=== PATIENT | female | born 2005 | race Two or more races ===

== ENCOUNTER 2024-10-07 20:22 | Emergency (ER) | payer MEDICAID, SELFPAY ==
[2024-10-07 20:36] VITALS: BP 115/80; PULSE 110; RESP 19; TEMP 37.2; O2SAT 98; BMI 26.7
--- NOTE | 2024-10-07 20:43 | XR_ITS ---
Examination: Abdomen sonogram, Limited Date and time of exam: October 07, 2024 2110 hrs. Indications: Onset right upper abdominal pain today Technique: Real-time neil scale transabdominal sonographic images of the upper abdomen obtained. Findings: Gallbladder sludge Negative for gallstones Gallbladder wall 0.3 cm no edema Common bile duct 0.2 cm Pancreatic head 2.1 cm Liver 13.6 cm fatty infiltration irregular contour no focal liver lesions Normal hepatopedal portal venous flow Patent IVC Impression: Gallbladder sludge, negative for cholelithiasis, negative for cholecystitis Liver normal size, fatty liver, suspect primary hepatocellular disease
--- NOTE | 2024-10-07 20:44 | PD.EDRME ---
Rapid Medical Screening Exam E Arrival date/time: 10/07/24 20:22 18-year-old female approximately 11 weeks presents emergency department complaining of epigastric pain, nausea vomiting, diarrhea, and generalized bodyaches since this morning. Patient denies any vaginal bleeding or abdominal cramping. Chief Complaint: Nausea/Vomiting/Diarrhea Vital signs: Vital Signs Temperature 99 F 10/07/24 20:36 Pulse Rate 110 H 10/07/24 20:36 Respiratory Rate 19 10/07/24 20:36 Blood Pressure 115/80 10/07/24 20:36 Pulse Oximetry (%) 98 10/07/24 20:36 Oxygen Delivery Method Room Air 10/07/24 20:36 Vital signs reviewed by provider: Yes
[2024-10-07 21:11] LABS: Basophils % (Auto) 0 % (0-2.5); Eosinophils % (Auto) 0 % (0-10); Immature Granulocytes % (Auto) 0 % (0-0); Immature Granulocytes Auto 0.03 Thou/mm3 (0.00-0.00); Lymphocytes # (Auto) 0.9 Thou/mm3 (1.0-5.0); Lymphocytes % (Auto) 9 % (10-50); Mean Corpuscular HGB Conc 35.1 g/dl (31.0-37.0); Mean Corpuscular Hemoglobin 28.8 pg (25.0-35.0); Mean Corpuscular Volume 82 fL (80-100); Monocytes # (Auto) 0.3 Thou/mm3 (0.0-0.8); Monocytes % (Auto) 3 % (0-12); Neutrophils # (Auto) 8.4 Thou/mm3 (1.8-7.7); Neutrophils % (Auto) 87 % (37-80); Nucleated Red Blood Cell % 0 /100 WBC (0); Platelet Count 275 Thou/mm3 (140-440); RDW Standard Deviation 38.4 fL (36.4-46.3); Red Blood Count 4.51 Miln/mm3 (4.00-5.20); White Blood Count 9.6 Thou/mm3 (4.5-11.0)
[2024-10-07 22:10] LABS: Alanine Aminotransferase 17 U/L (10-49); Albumin, Serum 4.3 gm/dL (3.5-5.0); Albumin/Globulin Ratio 1.5 (1.2-2.2); Alkaline Phosphatase 55 U/L (46-116); Anion Gap 9 (7-16); Aspartate Amino Transferase 15 U/L (0-34); BUN/Creatinine Ratio 8 Ratio (12-20); Bilirubin,Total 0.9 mg/dL (0.3-1.2); Blood Urea Nitrogen < 5 mg/dL (9-23); Calcium 9.8 mg/dL (8.3-10.6); Calcium (Corrected) 9.8 mg/dL (8.5-10.1); Carbon Dioxide 21.1 mMol/L (20.0-31.0); Chloride 105 mMol/L (98-107); Creatinine (Component) 0.6 mg/dL (0.6-1.3); Estimated Creatinine Clearance 145.5 mL/min (>60); Globulin 2.8 gm/dL (2.3-3.5); Glucose 111 mg/dL (74-106); Lipase 35 U/L (12-53); Osmolality,Calculated 268 (275-295); Potassium 3.2 mMol/L (3.4-5.1); Sodium 135 mMol/L (136-145); Total Protein 7.1 gm/dL (5.7-8.2); eGFR > 60 See Note
[2024-10-07 23:21] LABS: Collection Type, Urine Clean Catch
[2024-10-07 23:35] LABS: Bacteria,Urine 1+; Bilirubin,Urine Negative (Negative); Blood,Urine Negative (Negative); Clarity,Urine Turbid (Clear/Hazy); Color,Urine Yellow (Lt Yel-Yel); Culture Indicated,Urine Contaminated; Glucose, Urine Negative (Negative); Ketones,Urine 1+ (Negative); Leukocyte Esterase,Urine Negative (Negative); Nitrite,Urine Negative (Negative); PH,Urine 6.5 (5.0-7.0); Protein,Urine 1+ (Neg - Trace); RBC,Urine 3 /hpf (0-3); Specific Gravity,Urine 1.032 (1.001-1.035); Squamous Epithelial Cell,Urine 11 /hpf (0-5); WBC,Urine 4 /hpf (0-5)
[2024-10-08 00:23] VITALS: BP 114/69; PULSE 92; RESP 18; TEMP 37.2; O2SAT 99
--- NOTE | 2024-10-08 01:15 | PD.EDNV ---
Nausea/Vomit./Diarrhea-RME/HPI General Chief complaint: Nausea/Vomiting/Diarrhea Stated complaint: DARK VOMIT, DIARRHEA Arrival date/time: 10/07/24 20:22 RME / HPI RME / HPI Narrative: 10/07/24 20:22 18-year-old female approximately 11 weeks presents emergency department complaining of epigastric pain, nausea vomiting, diarrhea, and generalized bodyaches since this morning. Patient denies any vaginal bleeding or abdominal cramping. ------ Dr. Rucker?s Main ED Evaluation: 18yo female who is ~11 weeks gestation presents to the ED for complaints of N/V/D x 1 day. 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 She endorses having 4-5 associated episodes of diarrhea. She endorses her whole household is sick with similar symptoms. She denies any fever, chills or any other associated symptoms. No known allergies. Related Data Previous Rx's ?Medication ?Instructions ?Recorded ondansetron 4 mg disintegrating 4 mg PO Q8H PRN nausea and 09/06/24 tablet vomiting #14 tabs polyethylene glycol 3350 17 4 g PO BID PRN constipation 7 days 09/06/24 gram/dose oral powder (Miralax) #56 grams metoclopramide HCl 5 mg tablet 5 mg PO QDAY #30 tabs 09/16/24 (Reglan) ondansetron 4 mg disintegrating 4 mg PO Q8H PRN nausea and 10/08/24 tablet vomiting #10 tabs Allergies Allergy/AdvReac Type Severity Reaction Status Date / Time No Known Allergies Allergy Verified 09/16/24 09:02 Review of Systems Review of Systems Systems Reviewed: All systems reviewed, normal except as documented Narrative Review of Systems: Gen: No fever, no chills, no weight loss EYES: No discharge, no visual changes, no pain HEENT: No ear pain, no congestion, no sore throat PULM: No shortness of breath, no cough, no congestion CV: No chest pain, no dyspnea on exertion, no palpitations GI: + nausea, + vomiting, + diarrhea, no pain, no constipation : No frequency, no urgency, no dysuria Musc/skel: No joint pain, no back pain Skin: No rash Psyc: No hallucinations, no depression Heme/Lymph: No easy bleeding or bruising tendencies Neuro: No weakness, no headache Past Medical History Past Medical History NEUROLOGIC: Negative Neurological Disorders CARDIAC: Negative Cardiac Disorders or Congestive Heart Failure RESPIRATORY: Negative Chronic Obstructive Pulmonary Disease (COPD) GASTROINTESTINAL: Negative Gastrointestinal Disorders GENITOURINARY: Negative Genitourinary Disorders or Renal Disease MUSCULOSKELETAL: Negative Musculoskeletal Disorders ENDOCRINE: Negative Endocrine Disorders, Diabetes Mellitus Type 1 or Diabetes Mellitus Type 2 HEMATOLOGIC: Negative Blood Disorders Social History SMOKING STATUS: Never smoker ED Exam Narrative Physical exam: GENERAL APPEARANCE: AxOx4, generally well-appearing, no acute distress. HEENT: NC, AT. MMM. EOMI, clear conjunctiva, oropharynx clear. NECK: Supple without lymphadenopathy. No stiffness or restricted ROM. HEART: Normal rate and regular rhythm, normal S1/S1, no m/r/g LUNGS: CTAB, moving air well. No crackles or wheezes are heard. ABDOMEN: Soft, nontender, nondistended with good bowel sounds heard. BACK: No midline C/T/L spine pain or deformity, No CVAT, no obvious deformity. EXTREMITIES: Without cyanosis, clubbing or edema. MUSCULOSKELETAL: FROM of all major joints, no chest tenderness NEUROLOGICAL: Grossly nonfocal. Alert and oriented, moving all 4 extremities. CN not formally tested but appear grossly intact. Observed to ambulate with normal gait. Skin: Warm and dry without any rash. Course Quality Measures none Orders Category Date Time Status Bedside COVID-19 Antigen Test NOW Care 10/07/24 21:02 Active Bedside Influenza A&B Antigen Test NOW Care 10/07/24 21:02 Completed US gall bladder Stat Exams 10/07/24 20:43 Completed CBC Stat Lab 10/07/24 20:48 Completed CMP [Comprehensive Metabolic Panel] Stat Lab 10/07/24 20:48 Completed Lipase Stat Lab 10/07/24 20:48 Completed Urinalysis, C/S if Indicated Stat Lab 10/07/24 22:16 Completed Vital Signs Vital signs: Vital Signs Temperature 99 F 10/07/24 20:36 Pulse Rate 110 H 10/07/24 20:36 Respiratory Rate 19 10/07/24 20:36 Blood Pressure 115/80 10/07/24 20:36 Pulse Oximetry (%) 98 10/07/24 20:36 Oxygen Delivery Method Room Air 10/07/24 20:36 Pulse ox is 98% on room air, which is normal according to my interpretation. Nausea/Vomiting/Diarrhea MDM Narrative MDM Narrative:: Scribe Attestation: I, Kierra Lopez, am scribing for and in the presence of Dr. Rucker. Patient data External records reviewed:: [facility] previous records (Per chart review, patient was seen here for the same complaint on 09/16/24.) Clinical information provided by:: patient Social determinants that could affect healthcare access:: none Patient has the following chronic illnesses:: none How is presenting disease/condition affected by chronic disease/condition?: no chronic disease Evaluation data The following diagnostics were reviewed and interpreted by me:: lab results and radiology exam(s) Lab and/or radiology exams considered but not ordered:: none Interpretation Summary: Lipase is normal, urinalysis is contaminated, CBC is normal, according to my interpretation. ----- [facility] Report Signed Patient: VIKAS JACKSON Record#: [id number] Birthdate: 2005 Age/Sex: 18 / F Location: [facility] Attending Dr: Ordering Physician: Beth Fam (PLUG OVERWRAP MACHINE TENDER)Raffaele Date of Service: 10/07/24 Procedure(s): US gall bladder Accession Number(s): [id number] cc: Josh Lopez MD; Chung Giles MD; Beth Fam (PLUG OVERWRAP MACHINE TENDER),Raffaele MATT~ Examination: Abdomen sonogram, Limited Date and time of exam: October 07, 2024 2110 hrs. Indications: Onset right upper abdominal pain today Technique: Real-time neil scale transabdominal sonographic images of the upper abdomen obtained. Findings: Gallbladder sludge Negative for gallstones Gallbladder wall 0.3 cm no edema Common bile duct 0.2 cm Pancreatic head 2.1 cm Liver 13.6 cm fatty infiltration irregular contour no focal liver lesions Normal hepatopedal portal venous flow Patent IVC Impression: Gallbladder sludge, negative for cholelithiasis, negative for cholecystitis Liver normal size, fatty liver, suspect primary hepatocellular disease Dictated By: Chung Giles MD Signed By: <Electronically signed by Chung Giles MD in OV> 10/07/24 2143 Medications / Prescriptions Medications / Prescriptions considered but not ordered:: none Medication administrations:: see above, if any Consultations Consultation(s) initiated? (list below): No Diagnosis Nausea Differential Diagnosis: food poisoning, gastroenteritis and other (colitis, IBS) Most likely diagnosis given after review of the tests above:: see below Admission Indicated Admission indicated?: not indicated Admission Request Was there a request for admission?: No Disposition Plan Disposition Plan: Discharge Discharge Attestation Discharge Attestation: The patient and all family members were given an opportunity to ask questions and understood the discharge instructions. Discharge instructions specifically effects, indications for sooner follow up or return to the emergency department, and the expected course of current diagnosis. Patient condition: Stable Discharge Plan Plan Patient Disposition: HOME (Self Care) Prescriptions/Referrals Prescriptions/Med Rec: New ondansetron 4 mg tablet,disintegrating 4 mg PO Q8H PRN (Reason: nausea and vomiting) Qty: 10 0RF No Action polyethylene glycol 3350 [Miralax] 17 gram/dose powder 4 g PO BID PRN (Reason: constipation) 7 Days Qty: 56 1RF Rx Instructions: Place in 6 to 8 ounces of any type of fluid. ondansetron 4 mg tablet,disintegrating 4 mg PO Q8H PRN (Reason: nausea and vomiting) Qty: 14 0RF metoclopramide HCl [Reglan] 5 mg tablet 5 mg PO QDAY Qty: 30 0RF Referrals: Josh Lopez MD [Primary Care Provider] - In 1 week Problem List Clinical Impression: Gastroenteritis Patient/Caregiver Discharge Instructions Education Materials: ED Gastroenteritis, Viral (Adult) Additional Instructions: Drink plenty of fluids. Follow-up with your primary care doctor in 5 to 7 days if symptoms are not improving. You can return to the emergency department sooner if symptoms worsen or if you notice any new, concerning issues. Print Language: Libyan Stand Alone Forms: [facility] Award Info., Patient Portal Info Letter
== END 2024-10-08 01:24 | disposition home or self-care (01) ==
PROVIDERS: Emergency Provider Emergency Medicine; PCP Family Medicine
DX: O99.611 Diseases of the digestive system complicating pregnancy, first trimester (principal); K52.9 Noninfective gastroenteritis and colitis, unspecified; O26.611 Liver and biliary tract disorders in pregnancy, first trimester; K76.0 Fatty (change of) liver, not elsewhere classified; Z3A.11 11 weeks gestation of pregnancy
CPT/HCPCS: 36415; 76705; 80053; 81001; 83690; 85025; 87400; 87811; 99284

== ENCOUNTER 2024-11-15 00:21 | Emergency (ER) | payer MEDICAID, SELFPAY ==
[2024-11-15 00:22] VITALS: BMI 27.1
[2024-11-15 00:38] VITALS: BP 109/74; PULSE 100; RESP 18; TEMP 36.9; O2SAT 98
--- NOTE | 2024-11-15 00:49 | PD.EDURI ---
Upper Respiratory Inf. RME/HPI General Chief Complaint: Flu Like Symptoms Stated Complaint: COUGH Time Seen by Provider: 11/15/24 00:41 Arrival date/time: 11/15/24 00:21 18F with no significant PMH presents to ED with 5 days of worsening cough. Patient is also 16 weeks . Limitations: no limitations Related Data Previous Rx's ?Medication ?Instructions ?Recorded ondansetron 4 mg disintegrating 4 mg PO Q8H PRN nausea and 09/06/24 tablet vomiting #14 tabs polyethylene glycol 3350 17 4 g PO BID PRN constipation 7 days 09/06/24 gram/dose oral powder (Miralax) #56 grams metoclopramide HCl 5 mg tablet 5 mg PO QDAY #30 tabs 09/16/24 (Reglan) ondansetron 4 mg disintegrating 4 mg PO Q8H PRN nausea and 10/08/24 tablet vomiting #10 tabs azithromycin 250 mg tablet See Rx Instructions PO .COMPLEX #6 11/15/24 tabs Allergies Allergy/AdvReac Type Severity Reaction Status Date / Time No Known Allergies Allergy Verified 09/16/24 09:02 Review of Systems Review of Systems Systems Reviewed: All systems reviewed, normal except as documented Constitutional Constitutional: Reports system reviewed and no additional complaints, except as documented, Denies fever(s) and Denies headache(s) ENT Ears, Nose, Mouth, and Throat: Denies disequilibrium and Denies headache(s) Cardiovascular Cardiovascular: Reports system reviewed and no additional complaints, except as documented, Denies chest pain and Denies dyspnea Respiratory Respiratory: Reports system reviewed and no additional complaints, except as documented, Reports as per HPI, Reports cough and Denies dyspnea Gastrointestinal Gastrointestinal: Reports system reviewed and no additional complaints, except as documented, Denies abdominal pain, Denies nausea and Denies vomiting Neurologic Neurologic: Reports system reviewed and no additional complaints, except as documented, Denies confusion, Denies disequilibrium and Denies headache(s) Psychiatric Psychiatric: Denies confusion Past Medical History Past Medical History NEUROLOGIC: Negative Neurological Disorders CARDIAC: Negative Cardiac Disorders or Congestive Heart Failure RESPIRATORY: Negative Chronic Obstructive Pulmonary Disease (COPD) GASTROINTESTINAL: Negative Gastrointestinal Disorders GENITOURINARY: Negative Genitourinary Disorders or Renal Disease MUSCULOSKELETAL: Negative Musculoskeletal Disorders ENDOCRINE: Negative Endocrine Disorders, Diabetes Mellitus Type 1 or Diabetes Mellitus Type 2 HEMATOLOGIC: Negative Blood Disorders Social History SMOKING STATUS: Former smoker ED Exam General Limitations: Present no limitations General appearance: Present alert and in no apparent distress Head Head exam: Present atraumatic Eye Eye exam: Present normal appearance, PERRL and EOMI ENT ENT exam: Present mucous membranes moist Expanded ENT Exam Throat exam: Present tonsillar erythema; Absent tonsillomegaly, tonsillar exudate, R peritonsillar mass, L peritonsillar mass or muffled voice Neck Neck exam: Present normal inspection, full ROM and trachea midline Chest Chest inspection: Present normal inspection and symmetric chest wall rise Respiratory Respiratory exam: Present normal lung sounds bilaterally Cardiovascular Cardiovascular exam: Present regular rate, normal rhythm and normal heart sounds Abdominal Exam Abdominal exam: Present soft and normal bowel sounds Extremities Exam Extremities exam: Present normal inspection and full ROM Back Exam Back exam: Present normal inspection and full ROM Neurological Exam Neurological exam: Present alert, oriented X3 and CN II-XII intact Psychiatric Psychiatric exam: Present normal affect and normal mood Skin Skin exam: Present warm, dry, intact and normal color Course Quality Measures none Orders Category Date Time Status Bedside Influenza A&B Antigen Test NOW Care 11/15/24 00:41 Completed Strep A Rapid Stat Lab 11/15/24 00:54 Completed Vital Signs Vital signs: Vital Signs Temperature 98.4 F 11/15/24 00:38 Pulse Rate 100 11/15/24 00:38 Respiratory Rate 18 11/15/24 00:38 Blood Pressure 109/74 11/15/24 00:38 Pulse Oximetry (%) 98 11/15/24 00:38 Oxygen Delivery Method Room Air 11/15/24 00:38 O2 at 98% on RA and WNLs Upper Respiratory Infection MDM Narrative MDM Narrative:: 18F with no significant PMH presents to ED with 5 days of worsening cough. Patient is also 16 weeks . Physical exam reveals red oropharynx but otherwise clear ENT and lungs. Patient is afebrile, clm, and alert. Swabs neg. Will treat given duration and status. Patient data External records reviewed:: [facility] previous records Clinical information provided by:: patient Social determinants that could affect healthcare access:: none Patient has the following chronic illnesses:: none How is presenting disease/condition affected by chronic disease/condition?: no chronic disease Evaluation data The following diagnostics were reviewed and interpreted by me:: lab results Lab and/or radiology exams considered but not ordered:: ordered Interpretation Summary: above Medications / Prescriptions Medications or Prescriptions considered but not ordered:: not ordered Medication administrations:: n/a Consultations Consultation(s) initiated? (list below): No Diagnosis Upper Respiratory Differential Diagnosis: upper respiratory infection, croup, otitis media, sinusitis, viral infection, bronchitis, influenza, pharyngitis and other (CAP) Most likely diagnosis given after review of the tests above:: URI Admission Indicated Admission indicated?: not indicated Admission Request Was there a request for admission?: No Disposition Plan Disposition Plan: Discharge Discharge Attestation Discharge Attestation: The patient and all family members were given an opportunity to ask questions and understood the discharge instructions. Discharge instructions specifically effects, indications for sooner follow up or return to the emergency department, and the expected course of current diagnosis. Patient condition: Stable Discharge Plan Plan Patient Disposition: HOME (Self Care) Disposition Comment: Stable Prescriptions/Referrals Prescriptions/Med Rec: New azithromycin 250 mg tablet See Rx Instructions .ROUTE .COMPLEX Qty: 6 0RF Rx Instructions: For 250 mg dose pack: take 500 mg today (day 1), then 250 mg for 4 days (days 2-5) No Action polyethylene glycol 3350 [Miralax] 17 gram/dose powder 4 g PO BID PRN (Reason: constipation) 7 Days Qty: 56 1RF Rx Instructions: Place in 6 to 8 ounces of any type of fluid. ondansetron 4 mg tablet,disintegrating 4 mg PO Q8H PRN (Reason: nausea and vomiting) Qty: 14 0RF metoclopramide HCl [Reglan] 5 mg tablet 5 mg PO QDAY Qty: 30 0RF ondansetron 4 mg tablet,disintegrating 4 mg PO Q8H PRN (Reason: nausea and vomiting) Qty: 10 0RF Referrals: No Primary/Family,Physician [Primary Care Provider] - In 1 week Problem List Clinical Impression: Upper respiratory infection Patient/Caregiver Discharge Instructions Additional Instructions: Please follow-up with PCP within 24-48 hours and return immediately if symptoms worsen. Tylenol can be used for fever/pain control. Benadryl is good for cough, congestion, and sleep. Print Language: Mauritanian Stand Alone Forms: Patient Portal Info Letter AISLINN/SHAKA Supervising Physician AISLINN/SHAKA Supervising Physician: Dr. Mane
[2024-11-15 01:36] LABS: Strep A Rapid Negative (Negative)
== END 2024-11-15 01:54 | disposition home or self-care (01) ==
PROVIDERS: Physician Assistant; Emergency Provider Emergency Medicine
DX: O99.512 Diseases of the respiratory system complicating pregnancy, second trimester (principal); J06.9 Acute upper respiratory infection, unspecified; Z3A.16 16 weeks gestation of pregnancy; Z87.891 Personal history of nicotine dependence
CPT/HCPCS: 87400; 87651; 99283

== ENCOUNTER 2025-04-13 01:36 | Inpatient (IN) | payer MEDICAID, SELFPAY ==
[2025-04-13] VITALS (34 sets, daily range): BP systolic 100–147; BP diastolic 55–82; PULSE 73–114; RESP 18–100; TEMP 36.7–37.4; O2SAT 91–100; BMI 35.7
[2025-04-13] MEDS: RINGERS LACTATED 1000 ML 1,000 ML 100 ML IV (03:15)
[2025-04-13 03:44] LABS: Basophils % (Auto) 0 % (0-2.5); Eosinophils % (Auto) 0 % (0-10); Hematocrit 35.3 % (36.0-46.0); Hemoglobin 12.4 g/dL (12.0-16.0); Immature Granulocytes % (Auto) 0 % (0-0); Immature Granulocytes Auto 0.06 Thou/mm3 (0.00-0.00); Lymphocytes # (Auto) 2.4 Thou/mm3 (1.0-4.8); Lymphocytes % (Auto) 16 % (10-50); Mean Corpuscular HGB Conc 35.1 g/dl (31.0-37.0); Mean Corpuscular Hemoglobin 28.8 pg (25.0-35.0); Mean Corpuscular Volume 82 fL (80-100); Monocytes # (Auto) 0.8 Thou/mm3 (0.0-0.8); Monocytes % (Auto) 5 % (0-12); Neutrophils # (Auto) 11.6 Thou/mm3 (1.8-7.7); Neutrophils % (Auto) 78 % (37-80); Nucleated Red Blood Cell % 0 /100 WBC (0); Platelet Count 258 Thou/mm3 (140-440); RDW Standard Deviation 41.4 fL (36.4-46.3); Red Blood Count 4.31 Miln/mm3 (4.00-5.20); White Blood Count 14.9 Thou/mm3 (4.5-11.0)
[2025-04-13] MEDS: OXYTOCIN in NS 20 units 20 UNIT/1,000 ML BAG 125 UNIT IV (04:10)
[2025-04-13 04:12] LABS: HIV (1&2) Antibody Rapid Non-Reactive
[2025-04-13 04:14] LABS: Rubella, IgG Antibody Reactive (Immune)
[2025-04-13 04:19] LABS: Hepatitis B Surface Antigen Non Reactive (Non React)
[2025-04-13 04:23] LABS: Syphilis Nonreactive (Nonreactive)
[2025-04-13] MEDS: METHYLERGONOVINE INJ 0.2 MG/ML VIAL IM (04:36)
[2025-04-13] MEDS: IBUPROFEN TAB 400 MG TABLET 800 MG PO ×2 (04:52→17:13)
--- NOTE | 2025-04-13 04:55 | OBDSUM_ITS ---
Data ([place]) Data Hx Section: No : 3 Term: 0 : 0 Livin Abortions: Spontaneous & Theraputic: 1 Delivery Data ([place]) Labor Data Initiation of labor: Spontaneous Induction/Augmentation Agent: None ROM date: 04/13/25 ROM time: 03:07 Amniotic membrane rupture type: Spontaneous Amniotic fluid description: Clear Delivery Data Onset of labor date: 04/12/25 Onset of labor time: 10:30 Complete dilation date: 04/13/25 Complete dilation time: 04:08 delivery date: 04/13/25 delivery time: 04:10 Placenta delivery date: 04/13/25 Placenta delivery time: 04:16 Stage 1 total time: Labor - Stage 1 Duration 17 hours and 38 minutes Delivered by: nicole Delivery nurse: evelyn mcgregor rn [place] nurse: dennis mathew rn Vice President Risk Management at delivery: No Support person(s) at delivery: fathor of the baby Other staff at delivery: Lay PITT RN, Khadar LIANG cat cracker operator Method Delivery method: Normal Vaginal Delivery Presentation: Vertex Anesthesia Type Anesthesia Type: None Placenta Placenta delivery description: Spontaneous Cord blood sent to lab: Yes cord blood collection: Cord Blood Type Episiotomy Episiotomy description: None EBL Estimated blood loss (ml): 150 Umbilical Cord cord description: 3 Vessels Additional Procedures Aby is a 19yo [id number] s/p uncomplicated at 37+wk after presenting in active labor/with SROM in triage, delivering at 0410 on 04/13/2025. On presentation, SCE was 3/80/-2. She progressed without pitocin augmentation to C/C/0 at which point she began pushing. She was not able to receive an epidural. Patient preferred to deliver in hands-knees position. With good maternal pushing efforts, infant's head delivered OA and restituted ANASTASIIA. Right anterior shoulder delivered easily followed by posterior shoulder and corpus. had spontaneous cry and was vigorous. Apgars 8/9. placed in supported sitting position on the blue drape where nose/mouth were suctioned and infant dried/stimulated. After approximately 30 seconds, cord was clamped x2 and cut by FOB. Infant then taken to warmer and patient repositioned to supine position. Cord blood collected for typing. With fundal massage and cord traction, placenta delivered spontaneously and intact with 3 vessel centrally inserted cord, trailing membranes teased out intact. Fundal massage performed and IV pitocin given per protocol with fundus then firm at u-2cm and hemostasis noted. Inspection of perineum and vagina revealed bilateral labial lacerations which were repaired in routine fashion with 4-0 vicryl after anesthetizing with 1% lidocaine- total reapproximation and hemostasis achieved. 0.2mg IM methergine given for prophylaxis against future bleeding. All counts correct x2. Mom and were doing well when I left the room. Janessa Bello MD Complications Complications: none Data ([place]) [place] Data 's gender: Male weight (gms): 3195 g Weight (pounds): 7 lbs and 0.7 ozs 1 minute: 8 5 minutes: 9
--- NOTE | 2025-04-13 04:55 | PD.LDHP ---
Documentation for date of: 04/13/25 OB Labor/Induct. HPI History of Present Illness : 3 Para: 0 Term pregnancies: 0 pregnancies: 0 Living children: 0 History of Abortions: Spontaneous and Elective: 2 History of Vaginal deliveries: 0 History of sections: No History of : No TOSHA: 04/28/25 Gestational Age (weeks): 37 Gestational Age (days): 3 History of present illness: Patient presents for regular, painful ctx. Initial exam /-2 and no change 1 hour later, but nanda painfully and right after 2nd SCE, she had gross rupture of membranes. No vaginal bleeding. Normal movement. No fevers/chills. History of Present Narrative: Hx of 2 prior sab No records available to review at time of admission. Current BMI 35 Cannabis use noted on previous hospital records Labs Labs: Negative: RPR and Group Beta Strep and Unknown: Covid-19 Review of Systems Review of Systems Narrative Review of Systems: Review of Systems Systems Reviewed: All systems reviewed, normal except as documented Constitutional Constitutional: Denies body ache(s), Denies chills, Denies fever(s) and Denies headache(s) ENT Ears, Nose, Mouth, and Throat: Denies headache(s) and Denies vertigo Cardiovascular Cardiovascular: Denies chest pain, Denies palpitations, Denies dyspnea and Denies syncope Respiratory Respiratory: Denies cough, Denies dyspnea Gastrointestinal Gastrointestinal: Denies nausea and Denies vomiting Neurologic Neurologic: Denies convulsions, Denies headache(s), Denies other visual disturbances, Denies syncope and Denies vertigo Past Medical History Family History OTHER FAMILY HX: non-contributory Surgical History SURGICAL: Negative Section OTHER SURGICAL HX: denies Social History SOCIAL: No ETOH or tobacco use. Cannabis use in the past. Past Medical History Comments PMH COMMENT: Obesity, current BMI 35 Meds Home Medications and Allergies Allergies Allergy/AdvReac Type Severity Reaction Status Date / Time No Known Allergies Allergy Verified 09/16/24 09:02 OB Exam Physical Exam Vital signs: Temp Pulse Resp BP Pulse Ox 98.8 F 85 18 127/70 96 04/13/25 01:54 04/13/25 04:43 04/13/25 03:12 04/13/25 04:43 04/13/25 04:06 Narrative: General: well developed, well nourished, no acute distress, conversant Cardiac: normal heart rate Lungs: breathing without distress Abdomen: soft, gravid, non-tender, no rebound or guarding Extremities: no pain with palpation of calves Detailed Labor and Delivery Exam Dilation (cm): 3 Effacement (%): 80 Cervix position: anterior station: -2 Consistency: soft Presentation: Vertex Membranes: ruptured Amniotic fluid: clear monitor accelerations: 15x15 monitor decelerations: None senior living variability: Moderate (11-25) Contraction frequency (min): q3-5 min OB Results Labs 04/13/25 10:48 Labs: Short CBC 04/13/25 Range/Units 03:10 WBC 14.9 H (4.5-11.0) Thou/mm3 Hgb 12.4 (12.0-16.0) g/dL Hct 35.3 L (36.0-46.0) % Plt Count 258 (140-440) Thou/mm3 OB Assessment & Plan Assessment and Plan (1) Active labor at term: Status: Acute Assessment and plan: Aby is a 19yo with SIUP at 37&3wk presenting in active labor with SROM after arrival, clear. Regular/painful contractions. Vitals wnl, benign exam. Reassuring assessment. PMhx/ complicated by: Care with [facility]. No records available to review at time of admission other than some labs (normal 2hr glucose test, negative CF, SMA and NIPT, GBS neg). Current BMI 35 Cannabis use noted on previous hospital records Plan: -Admit to L&D -Establish IV, routine labs to include OB panel labs and UDS -CEFM -Clear liquid diet -Emergency Medicine Nurse Practitioner/consent re: -GBS status: negative -Anticipate -Safe to proceed (2) Rupture of membranes with clear amniotic fluid: Status: Acute
[2025-04-13 04:59] LABS: Amphetamine/Metham Scrn,Ur OB Negative (Negative); Benzoylecgonine Screen, Ur OB Negative (Negative); Opiate Screen,Urine OB Negative (Negative); THC Screen,Urine OB Negative (Negative)
[2025-04-13] MEDS: BENZO/LANO/ALOE (Dermoplast) 60 GM CAN 1 SPRAY TOP (07:54)
[2025-04-13 09:10] LABS: Chlamydia trachomatis PCR Negative (Not Detect); Neisseria Gonorrhoeae DNA PCR Negative (Not Detect); Trichomonas Negative (Negative)
[2025-04-13] MEDS: DOCUSATE SOD 100 MG CAPSULE PO ×2 (09:10→21:15)
[2025-04-13 11:16] LABS: Basophils % (Auto) 0 % (0-2.5); Eosinophils % (Auto) 0 % (0-10); Hematocrit 32.6 % (36.0-46.0); Hemoglobin 11.4 g/dL (12.0-16.0); Immature Granulocytes % (Auto) 1 % (0-0); Immature Granulocytes Auto 0.11 Thou/mm3 (0.00-0.00); Lymphocytes # (Auto) 1.8 Thou/mm3 (1.0-4.8); Lymphocytes % (Auto) 8 % (10-50); Mean Corpuscular Hemoglobin 29.1 pg (25.0-35.0); Mean Corpuscular Volume 83 fL (80-100); Monocytes % (Auto) 4 % (0-12); Neutrophils # (Auto) 19.8 Thou/mm3 (1.8-7.7); Neutrophils % (Auto) 87 % (37-80); Nucleated Red Blood Cell % 0 /100 WBC (0); Platelet Count 215 Thou/mm3 (140-440); RDW Standard Deviation 41.8 fL (36.4-46.3); Red Blood Count 3.92 Miln/mm3 (4.00-5.20); White Blood Count 22.7 Thou/mm3 (4.5-11.0)
[2025-04-13] MEDS: ACETAMINOPHEN 325 MG TABLET 650 MG PO (19:48)
[2025-04-14 00:28] VITALS: BP 115/71; PULSE 94; RESP 16; TEMP 36.6
[2025-04-14] MEDS: ACETAMINOPHEN 325 MG TABLET 650 MG PO (00:35)
[2025-04-14] MEDS: IBUPROFEN TAB 400 MG TABLET 800 MG PO ×2 (03:43→15:04)
[2025-04-14 04:32] VITALS: BP 99/65; PULSE 83; RESP 18; TEMP 36.6; O2SAT 99
[2025-04-14 07:42] VITALS: BP 101/61; PULSE 78; RESP 17; TEMP 36.7; O2SAT 98
--- NOTE | 2025-04-14 07:59 | PD.LDDS ---
DS: Providers Provider Date of admission: 04/13/25 03:12 Primary care physician: Josh Lopez MD Admitting Provider: Janessa Bello MD Attending Provider on Admission: Janessa Bello MD Consults: 04/13/25 04:53 Referral Routine Comment: Attending Provider on DC: Joy Thomas CNM Discharging Provider: Joy Thomas CNM Anticipated date of discharge: 04/14/25 DS: Diagnosis Discharge Diagnosis (1) Normal spontaneous vaginal delivery: Status: Acute (2) Encounter for care of lactating mother: Status: Acute Problem List Completed Was Problem List Reviewed/Reconciled?: Yes Summary/Hosp Course Brief History: Patient presents for regular, painful ctx. Initial exam /-2 and no change 1 hour later, but nanda painfully and right after 2nd SCE, she had gross rupture of membranes. No vaginal bleeding. Normal movement. No fevers/chills. 04/14/25: PPD#1 status post vaginal delivery. Pt is stable and afebrile, doing well in , denies dissniess, SOB, reprots minimal lochia. No complaints. DIscharge instructions given. FU with Dr. Forbes in 3 weeks . Peripartum Data Delivery Method: Normal Vaginal Delivery Episiotomy Description: None Laceration Description: yes and see Delivery Summary complications: none 1: Gender: Male Disposition of : home Status at Discharge Cognitive/behavioral status at discharge: Alert and oriented x3 Functional status at discharge: independent ambulation Time Spent with Patient Time attestation: Total time spent providing and/or coordinating discharge services: Time spent: Less than 30 minutes Exam Vital Signs Temp Pulse Resp BP Pulse Ox O2 Del Method 98.1 F 78 17 101/61 98 Room Air 04/14/25 07:42 04/14/25 07:42 04/14/25 07:42 04/14/25 07:42 04/14/25 07:42 04/14/25 07:42 Constitutional Constitutional: no acute distress Routine HEENT Exam Head: Present normocephalic and atraumatic Eye: Present EOMI, PERRL and normal accommodation ENT: Present mucous membranes moist Routine Neck Exam Neck: Present supple, full ROM and trachea midline Routine Respiratory Exam Respiratory: Present chest non-tender, lungs clear, normal breath sounds and no resp distress Routine Cardiovascular Exam Cardiovascular: Present RRR Routine Abdominal Exam Abdominal: Present soft and normoactive bowel sounds; Absent tenderness or distended Comments: Uterus non-tender Fundus firm Routine Exam Patient deferred: external exam Routine Extremities Exam Extremities: Present full ROM, pulses intact and normal capillary refill; Absent calf tenderness or tenderness Routine Back/Spine/Pelvis Exam Back/Spine: Present full ROM Routine Skin Exam Skin: Present intact, dry and warm Routine Neurological Exam Neurological: Present alert, oriented X3 and CN II-XII intact Routine Psychiatric Exam Psychiatric: Present normal affect and normal thought process Discharge Plan Plan Patient Disposition: HOME (Self Care) Patient condition on transfer: Stable Prescriptions/Referrals Prescriptions/Med Rec: New ibuprofen 800 mg tablet 800 mg PO Q6H MDD 4 PRN (Reason: pain) Qty: 90 0RF docusate sodium [Colace] 100 mg capsule 100 mg PO BID Qty: 60 0RF lanolin 50 % ointment 1 applic topical TID PRN (Reason: skin irritation) Qty: 15 0RF No Action polyethylene glycol 3350 [Miralax] 17 gram/dose powder 4 g PO BID PRN (Reason: constipation) 7 Days Qty: 56 1RF Rx Instructions: Place in 6 to 8 ounces of any type of fluid. ondansetron 4 mg tablet,disintegrating 4 mg PO Q8H PRN (Reason: nausea and vomiting) Qty: 14 0RF metoclopramide HCl [Reglan] 5 mg tablet 5 mg PO QDAY Qty: 30 0RF azithromycin 250 mg tablet See Rx Instructions .ROUTE .COMPLEX Qty: 6 0RF Rx Instructions: For 250 mg dose pack: take 500 mg today (day 1), then 250 mg for 4 days (days 2-5) ondansetron 4 mg tablet,disintegrating 4 mg PO Q8H PRN (Reason: nausea and vomiting) Qty: 10 0RF Referrals: Josh Lopez MD [Primary Care Provider] - Patient/Caregiver Discharge Instructions Meds to Beds: No Discharge Activity: activity as tolerated Other Discharge Activity Instructions:: Follow-up with Dr. Forbes in 3 weeks Education Materials: After a Vaginal , After Delivery [place] Concerns Print Language: [place] Stand Alone Forms: [employer] Award Info., Patient Portal Info Letter Discharge Order Discharge Orders: Discharge (Routine); Ordered 04/14/25 Ordered By: Joy Thomas Planned Discharge Date 04/14/25
--- NOTE | 2025-04-14 09:28 | PC.SS ---
HELP DESK SUPPORT conducted bedside contact with the patient to address nursing referral indicating patient possessed history of anxiety/depression.? HELP DESK SUPPORT introduced self and role.? At bedside with patient was Linden MCHUGH.? Patient gave permission for FOB to be present during discussion.? Patient confirmed past history of depression/anxiety.? Per patient, level of depression/anxiety has not impaired current level of daily functioning.? Patient is not prescribed medication to address depression/anxiety.? Patient disclosed engaging in self-harm behavior as a minor.? Per patient event did not lead to psychiatric placement.? Patient reports alignment with counseling following event.? No other events of self-harm behavior identified by the patient.? FOB, reports no concern with patient?s emotional status. ?Infant, Jerome; is the patient?s first child.? Infant delivered naturally.? Patient plans on combo feeding .? Patient is aligned with [facility].? Patient to apply for SNAP.? Patient is not receiving TANF.? Patient denies history of alcohol/drug use.? Patient denies episodes of domestic violence.? OB services provided by Dr. Forbes, [place].? Patient reports compliance with OB appointments.? Patient has access to appropriate supplies and equipment.? FOB will provide transportation upon discharge.? Patient describes possessing support system consisting of FOB, father and sister.? HELP DESK SUPPORT provided community resources to include [employer] [facility] and [facility].? No further intervention required at this time, social work assistant will be available to address any further concerns.? HELP DESK SUPPORT updated bedside nurse.?
[2025-04-14 12:30] VITALS: BP 103/76; PULSE 81; RESP 18; TEMP 36.8; O2SAT 97
[2025-04-14 15:40] VITALS: BP 105/75; PULSE 88; RESP 18; TEMP 37; O2SAT 98
== END 2025-04-14 17:03 | disposition home or self-care (01) | DRG 560 ==
LOC: S4SX 06:27 → S4NX 08:05
PROVIDERS: Admitting Provider Obstetrics & Gynecology; PCP Family Medicine; Visit Provider Obstetrics & Gynecology
DX: O99.214 Obesity complicating childbirth (principal); O70.0 First degree perineal laceration during delivery; Z37.0 Single live birth; Z3A.37 37 weeks gestation of pregnancy
CPT/HCPCS: 36415; 59025; 59409; 80307; 85025; 86703; 86762; 86780; 86850; 86900; 86901; 87340; 87491; 87591; 87661